=== PATIENT | male | born 1980 | race African-American/Black ===

== ENCOUNTER 2017-11-17 22:40 | Emergency (ER) | payer SELFPAY | END 2017-11-18 00:48 | disposition home or self-care (01) | LOC: D.ER 22:40 | DX: M54.5 Low back pain (principal); J01.90 Acute sinusitis, unspecified; R51 Headache; R42 Dizziness and giddiness; I10 Essential (primary) hypertension; E11.9 Type 2 diabetes mellitus without complications ==